=== PATIENT | male | born 1960 | race African-American/Black ===

== ENCOUNTER 2025-02-21 23:02 | Emergency (ER) | payer MEDICARE, MEDICAID ==
[~2025-02-21] VITALS: Ht 177.8 cm; Wt 76.0 kg
[~2025-02-21 23:02] MED LIST: ASPI-1406 MT; ATOR10TA MT; LISI-186 PO; NIFE-33 PO
[2025-02-21 23:14] VITALS: BP 173/122; PULSE 96; RESP 18; O2SAT 94
[2025-02-21] MEDS ORDERED: ASPIRIN 81MG TABLET PO ONE (23:15)
[2025-02-21] MEDS ORDERED: SODIUM CHLORIDE 0.9% 1,000 ML IV ONE (23:30)
[2025-02-22 00:26] LABS: BASOPHILS % 0.4 % (0.0-2.0); EOSINOPHILS % 0.3 % (0.0-5.0); HEMATOCRIT. 47.5 % (42.0-52.0); HEMOGLOBIN. 14.7 g/dL (14.0-18.0); LYMPHOCYTES % 23.1 % (20.0-50.0); MEAN PLATELET VOLUME 10.3 fl (7.4-10.4); MONOCYTES % 10.7 % (2.0-8.0); NEUTROPHILS % 65.5 % (40.0-76.0); PLATELET 183 x1000/uL (130-400); RED BLOOD CELL COUNT 6.24 mill/uL (4.7-6.1); RED CELL DISTRIBUTION WIDTH 19.4 % (11.6-14.6)
[2025-02-22 00:38] LABS: INR 1.1
[2025-02-22 00:40] LABS: ETHANOL BLOOD < 10 mg/dL (<10); UREA NITROGEN BLOOD 20 mg/dL (9-23)
[2025-02-22 00:41] LABS: ASPARTATE AMINOTRANSFERASE 38 IU/L (<34)
[2025-02-22 00:42] LABS: BILIRUBIN DIRECT 0.2 mg/dL (<=3.0); BILIRUBIN TOTAL 0.6 mg/dL (0.1-1.0); PROTEIN TOTAL 7.4 g/dL (6.0-8.3)
[2025-02-22 00:46] LABS: CREATININE 1.6 mg/dL (0.6-1.3)
[2025-02-22 00:47] LABS: TROPONIN I HIGH SENSITIVITY 64 ng/L (3.0-53)
[2025-02-22] MEDS ORDERED: LORAZEPAM 2MG/ML UD SYRINGE IV NR (01:15)
[2025-02-22] MEDS ORDERED: ASPIRIN 81MG TABLET PO NR (01:15)
[2025-02-22] MEDS ORDERED: GUAIFENESIN 200MG/10ML SUGAR FREE UDC PO PRN (03:00)
[2025-02-22] MEDS ORDERED: MAGNESIUM/ALUMINUM HYDROXIDE/SIMETHICONE 30ML UDC PO PRN (03:00)
[2025-02-22] MEDS ORDERED: CLONIDINE 0.1MG TABLET PO PRN (03:00)
[2025-02-22] MEDS ORDERED: ACETAMINOPHEN 325MG TABLET PO PRN (03:00)
[2025-02-22] MEDS ORDERED: IPRATROPIUM/ALBUTEROL 0.5-3(2.5)MG/3ML NEB HHN PRN (03:00)
[2025-02-22] MEDS ORDERED: ONDANSETRON HCL 4MG/2ML INJ IV PRN (03:00)
[2025-02-22] MEDS ORDERED: DEXTROSE 50% WATER 50ML SYRINGE IV PRN (03:00)
[2025-02-22] MEDS ORDERED: DOCUSATE SODIUM 100MG CAPSULE PO PRN (03:00)
[2025-02-22] MEDS ORDERED: INSULIN LISPRO 100 UNITS/ML SUBCUT SCH (08:20)
[2025-02-22] MEDS ORDERED: LISINOPRIL 5MG TABLET PO SCH (09:00)
[2025-02-22] MEDS ORDERED: ASPIRIN 81MG EC TABLET PO SCH (09:00)
[2025-02-22] MEDS ORDERED: NIFEDIPINE XL 60MG TAB PO SCH (09:00)
[2025-02-22] MEDS ORDERED: ENOXAPARIN 40MG/0.4ML SYR SUBCUT SCH (09:00)
[2025-02-22] MEDS ORDERED: BLOOD SUGAR DIAGNOSTIC STRIP TEST SCH (09:00)
[2025-02-22] MEDS ORDERED: FAMOTIDINE 20MG/2ML VIAL IV SCH (09:00)
== END 2025-02-22 01:54 | disposition left against medical advice (07) ==
LOC: ER 23:02 → ENRESERV 02-22 02:21 → CANRESERV 02-22 02:22 → ENRESERVTM 02-22 02:22 → CMPBEDREQ 02-22 08:53
DX: I21.4 Non-ST elevation (NSTEMI) myocardial infarction (principal); N17.9 Acute kidney failure, unspecified; F19.10 Other psychoactive substance abuse, uncomplicated; E11.9 Type 2 diabetes mellitus without complications; I10 Essential (primary) hypertension; J45.909 Unspecified asthma, uncomplicated; Z55.6 Problems related to health literacy; Z79.82 Long term (current) use of aspirin; Z95.1 Presence of aortocoronary bypass graft; Z79.899 Other long term (current) drug therapy; Z88.6 Allergy status to analgesic agent
CPT/HCPCS: 80076; 80048; 80320; 83880; 85025; 85610; 85730; 84484; 36415; 71045; 93005; 99291; J7030; J2060; G0480